=== PATIENT | female | born 1985 | race Caucasian/White ===

== ENCOUNTER 2018-11-08 06:09 | Inpatient (IN) ==
[2018-11-08] MEDS ORDERED: Albuterol 2.5 MG/3 ML NEBULIZER IH ONE (06:28)
[2018-11-08] MEDS ORDERED: Ringers Solution, Lactated 1,000 ML IVC SCH ×2 (06:30→07:30)
--- NOTE | 2018-11-08 07:15 | Anesthesia Evaluation PreOp ---
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 (chronic low back pain with radiation to wilfredo LE, anxiety, deression, PTSD) Other Medical History: Denies Any Significant HX Anesthesia History: No Prior Anesthetic Complications, Past Anesthesia (L shoulder scope) Test: Negative (11/01/18) Alcohol Use: none Drug use: none Medications and Allergies Buspirone HCl [Buspar] 7.5 mg PO BID 01/01/18 [History] Sertraline [Zoloft] 100 mg PO DAILY 01/01/18 [History] Trazodone HCl 100 mg PO HS 01/01/18 [History] Ibuprofen [Ibu] 600 mg PO Q6HR #28 tablet 06/19/18 [Rx] Ondansetron HCl [Zofran] 4 mg PO Q8HR PRN #14 tab 06/19/18 [Rx] Allergy/AdvReac Type Severity Reaction Status Date / Time codeine Allergy See Verified 11/01/18 14:04 Comments doxylamine Allergy See Verified 11/01/18 14:04 Comments naproxen Allergy See Verified 11/01/18 14:04 Comments orphenadrine Allergy See Verified 11/01/18 14:04 Comments - Meds/Allergy Pre-op Review Medications Reviewed: Yes Allergies Reviewed: Yes Beta Blockers on Current Med List: No Anesthesia Results - Labs Laboratory Tests 06/19/18 11/01/18 11/01/18 21:01 14:20 14:20 WBC 6.1 Hgb 14.9 Hct 44.4 Plt Count 354 Sodium 137 Potassium 3.7 Chloride 106 Carbon Dioxide 26 BUN 17 Creatinine 0.72 Serum , Qual 11/01/18 14:20 WBC Hgb Hct Plt Count Sodium Potassium Chloride Carbon Dioxide BUN Creatinine Serum , Qual Negative Anesthesia Exam O2 Sat Height 1.73 m Height 1.73 m Weight 93.44 kg Weight 93.44 kg O2 Sat by Pulse Oximetry 95 O2 Sat by Pulse Oximetry 95 Vital Signs Temp Pulse Resp BP Pulse Ox 98.7 F 78 18 110/69 95 11/08/18 06:41 11/08/18 06:41 11/08/18 06:41 11/08/18 06:41 11/08/18 06:41 Weight: 93kg NPO (# of Hours): >8 - HEENT Pupil (Motor): Pupils equal, EOMI Mallampati: I Teeth: Normal Oral Opening: Greater than 3 - 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
[2018-11-08] MEDS ORDERED: *HR* Rocuronium Bromide 50 MG/5 ML VIAL ONE ×2 (07:16→08:41)
[2018-11-08] MEDS ORDERED: Dexamethasone 4 MG/ML VIAL ONE (07:16)
[2018-11-08] MEDS ORDERED: *HR* Succinylcholine 200 MG/10 ML VIAL IVP ONE (07:16)
[2018-11-08] MEDS ORDERED: Ondansetron 4 MG/2 ML VIAL ONE (07:16)
[2018-11-08] MEDS ORDERED: Lidocaine -MPF 2% 2 ML VIAL ONE (07:16)
[2018-11-08] MEDS ORDERED: Ondansetron 4 MG/2 ML VIAL IVP ONE (07:17)
[2018-11-08] MEDS ORDERED: *HR* FentaNYL (PF) 100 MCG/2 ML VIAL ONE ×2 (07:17→08:21)
[2018-11-08] MEDS ORDERED: *HR* Meperidine 25 MG/ML SYRINGE IVP PRN (07:17)
[2018-11-08] MEDS ORDERED: *HR* OxyCODONE Immed Rel 5 MG TABLET PO PRN (07:17)
[2018-11-08] MEDS ORDERED: *HR* Propofol 200 MG/20 ML VIAL IVP ONE (07:17)
[2018-11-08] MEDS ORDERED: *HR* Promethazine 25 MG/ML VIAL IVP PRN (07:17)
[2018-11-08] MEDS ORDERED: *HR* Midazolam HCl 2 MG/2 ML VIAL ONE (07:22)
[2018-11-08] MEDS ORDERED: CeFAZolin Syr 2,000MG/20 ML 2,000 MG/20 ML SYRINGE IVPB ONE (07:26)
[2018-11-08] MEDS ORDERED: Acetaminophen IV 1,000 MG/100 ML INFUS..BTL ONE (07:28)
--- NOTE | 2018-11-08 07:29 | History & Physical Report ---
Date of Encounter: 11/08/18 Time of Encounter: 07:28 24 Hour HP Update - Instructions Instructions: If the History and Physical is less than 30 days old and was completed prior to A.M. admission and or procedure and has NOT been updated on calendar day of procedure please complete this update prior to performing procedure. - Update Patient reports changes in Medical Condition: No Changes in examination, assessment, or condition: No Changes in Medication: No Preop tests/diagnostics Reviewed: No Surgery Remains Indicated: Yes Consent for Planned Operative Procedure(s) Verified: Yes - Pre-Operative Checklist Preoperative Checklist Indicated: Yes Prophylactic Antibiotic Ordered: Yes Home Medications Include Beta Jaqueline: Yes Beta Jaqueline Taken Today (Day of Surgery): No Beta Jaqueline Taken Yesterday (Day Prior to Surgery): No Is VTE Prophylaxis Indicated?: Yes
[2018-11-08] MEDS ORDERED: EPHEDrine 50 MG/ML VIAL ONE (08:38)
[2018-11-08] MEDS ORDERED: Neostigmine Methylsulfate 3 MG/3 ML SYRINGE ONE (08:39)
[2018-11-08] MEDS ORDERED: Ketorolac 30 MG/ML VIAL ONE (08:39)
--- NOTE | 2018-11-08 09:41 | OB/GYN Procedure Note ---
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 An incision was made into the abdomen down through the subcutaneous tissue, muscular fascia and peritoneum. Once inside the abdominal cavity, 3 lap sponges were placed to expose the pelvic cavity. The uterus was then identified and grasped on the fundus with a double-toothed tenaculum with upward traction. The round ligaments on either side were identified and individually dissected an d ligated with the Ligasure device. This allowed us to then create a bladder flap by both blunt and sharp dissection. The fallopian tube and ovarian ligament were isolated through the broad ligament from the uterine body and ligated with the Ligasure divided as well. We then skeletonized the uterine vessels on either side and carefully dissected the bladder flap anteriorly. Posteriorly, the peritoneum was dissected down toward the uterosacral ligaments. Alfa clamps were then placed at each isthmic portion of the cervical body junction where the uterine arteries adjoined the uterus. These were clamped, ligated and divided using #0 Vicryl suture. The remainder of the uterus was then removed by the [id number] technique using #0 Vicryl on all major pedicles. With removal of the uterus, the vaginal cuff was closed in the usual manner. Hemostasis was then inspected and secured throughout the entire area. The ovaries were left in situ. The lap sponges were then removed. The patient tolerated the operation nicely. There were no complications associated with this surgical procedure to this point. The sponge count was correct times 2 at this time. The Ross catheter was inspected and clear urine was noted. Having removed all packs, we then began closure of the abdomen. The fascia was closed with #0 Vicryl in a running continuous manner and the subcutaneous tissue was also cl osed with #3-0 Vicryl in interrupted manner. The skin was closed with #4-0 vicryl. The patient tolerated the operation nicely and was then taken to the Recovery Room in good condition.
[2018-11-08] MEDS: *HR* HYDROmorphone (PF) 1 MG/ML SYRINGE IVP PRN ×2 (10:05→10:09)
--- NOTE | 2018-11-08 10:41 | Anesthesia Evaluation Post Op ---
Date of Encounter: 11/08/18 Time of Encounter: 10:41 - Vital Signs Vital Signs: Vital Signs/O2 Sat, Most Current Temp Pulse Resp BP Pulse Ox 98.5 F 78 18 122/73 95 11/08/18 10:30 11/08/18 10:30 11/08/18 10:30 11/08/18 10:30 11/08/18 10:30 - Lungs Lungs: Clear Ascult./Percussion - Airway Airway: Non-obstructed - Cardiovascular Regular Rate - Mental Status Mental Status: Asleep with brisk response to light stimulation - Pain Pain Scale: 0 Pain Scale used: Numeric (1 - 10) - Nausea Vomiting Nausea Vomiting: Not Present - Hydration Hydration: Tolerates oral liquids, Ross catheter - Discharge PostOp Status: Transfer Patient to floor
[2018-11-08] MEDS ORDERED: Naloxone 0.4 MG/ML INJ IVP PRN (11:09)
[2018-11-08] MEDS ORDERED: Ondansetron 4 MG/2 ML VIAL IVP PRN (11:09)
[2018-11-08] MEDS: *HR* OxyCODONE/APAP 5/325 TABLET PO PRN ×3 (11:39→21:24)
[2018-11-08] MEDS: Ringers Solution, Lactated 1,000 ML IVC SCH ×2 (11:39→19:54)
[2018-11-08] MEDS: Ibuprofen 600 MG TABLET PO PRN (21:24)
[2018-11-09] MEDS: *HR* OxyCODONE/APAP 5/325 TABLET PO PRN ×2 (03:53→08:38)
[2018-11-09] MEDS: Ibuprofen 600 MG TABLET PO PRN (03:53)
[2018-11-09] MEDS: Ringers Solution, Lactated 1,000 ML IVC SCH (03:53)
[2018-11-09 04:00] VITALS: BP 103/63
[2018-11-09 06:22] LABS: Basophils % 0.1 %; Eosinophils % 0.1 %; Hematocrit 38.3 % (35.3-44.9); Hemoglobin 12.7 g/dL (11.5-15.4); Immature Granulocytes % 0.4 % (0-4); Lymphocytes # 2.1 K/mcL (0.6-4.6); Lymphocytes % 13.6 %; Mean Corpuscular HGB Conc 33.2 g/dL (31.6-35.5); Mean Corpuscular Hemoglobin 30.5 pg (28.0-33.3); Mean Corpuscular Volume 92.1 fL (83.0-100.0); Mean Platelet Volume 9.6 fL (9.4-12.4); Monocytes # 1.4 K/mcL (0.0-1.3); Monocytes % 9.3 %; Neutrophils # 11.7 K/mcL (1.6-8.9); Platelet Count 280 K/mcL (140-400); Red Blood Count 4.16 M/mcL (3.82-4.97); Red Cell Distribution Width 12.6 % (11.5-14.5); Segmented Neutrophils % 76.5 %
--- NOTE | 2018-11-09 07:27 | Discharge Summary ---
Date of Encounter: 11/09/18 Time of Encounter: 07:25 - Discharge Diagnosis (1) Status post hysterectomy Priority: Primary Status: Acute Comments: s/p TYE, POD# 1, patient is doing well, tolerating PO, good urine output, pain is under control, ok for discharge - Discharge Medications Home Medications: Buspirone HCl [Buspar] 7.5 mg PO QPM 01/01/18 [History] Sertraline [Zoloft] 100 mg PO DAILY PRN 01/01/18 [History] Ibuprofen [Ibu] 600 mg PO Q6HR #28 tablet 06/19/18 [Rx] Allergies/Adverse Reactions: Allergy/AdvReac Type Severity Reaction Status Date / Time codeine Allergy See Verified 11/08/18 08:30 Comments dextromethorphan Allergy See Verified 11/08/18 08:31 Comments doxylamine Allergy See Verified 11/08/18 08:30 Comments naproxen Allergy Nausea Verified 11/08/18 08:30 orphenadrine Allergy See Verified 11/08/18 08:30 Comments pseudoephedrine AdvReac See Verified 11/08/18 08:30 Comments Data Procedures and tests throughout hospitalization: Laboratory Tests 11/09/18 06:00 WBC 15.3 H RBC 4.16 Hgb 12.7 Hct 38.3 MCV 92.1 MCH 30.5 MCHC 33.2 RDW 12.6 Plt Count 280 MPV 9.6 Immature Gran % 0.4 Seg Neutrophils % 76.5 Lymphocytes % 13.6 Monocytes % 9.3 Eosinophils % 0.1 Basophils % 0.1 Neutrophils # 11.7 H Lymphocytes # 2.1 Monocytes # 1.4 H Eosinophils # 0.0 Basophils # 0.0 Labs on day of discharge: Labs from last 24 hours 11/09/18 06:00 WBC 15.3 H RBC 4.16 Hgb 12.7 Hct 38.3 MCV 92.1 MCH 30.5 MCHC 33.2 RDW 12.6 Plt Count 280 MPV 9.6 Immature Gran % 0.4 Seg Neutrophils % 76.5 Lymphocytes % 13.6 Monocytes % 9.3 Eosinophils % 0.1 Basophils % 0.1 Neutrophils # 11.7 H Lymphocytes # 2.1 Monocytes # 1.4 H Eosinophils # 0.0 Basophils # 0.0 Date of admission: 11/08/18 10:41 Primary care physician: Ivett Forrest MD - Patient Status Disposition: Home, Self-Care Condition: Good Functional capacity at discharge: independent ambulation Overall status at discharge: patient is progressing back to baseline - Discharge Instructions Follow Up With: Ivett Forrest MD [Primary Care Provider] - Hospital Course [employer] Time Attestation: Total time spent providing and/or coordinating discharge services: Exam - Constitutional Vitals: Temp Pulse Resp BP Pulse Ox 97.6 F 73 18 103/63 95 11/09/18 03:58 11/09/18 03:58 11/09/18 03:58 11/09/18 03:58 11/09/18 03:58 General appearance IM: A&O X 3 - Respiratory Respiratory exam: Present: CTAB - Cardiovascular Cardiovascular exam IM: Present: RRR - GI/Abdominal GI/Abdominal exam IM: normal bowel sounds Incision: dressed - VTE Documentation of Mechanical Device: Intermittent pneumatic compression device
== END 2018-11-09 10:11 | disposition home or self-care (01) | DRG 513 ==
LOC: SAMDAY 06:09 → 1NENUPED 10:41
PROVIDERS: ADMIT Student in an Organized Health Care Education/Training Program; ATTEND Student in an Organized Health Care Education/Training Program